=== PATIENT | female | born 1960 | race Native Hawaiian/Other Pacific Islander ===

== ENCOUNTER 2016-10-25 17:58 | Outpatient (CLI) | payer BC ==
[2016-10-25 18:45] LABS: PLATELET COUNT 289 K/uL (152-353)
[2016-10-25 19:05] LABS: POTASSIUM 3.6 mmol/L (3.6-5.2); SODIUM 138 mmol/L (136-145)
== END 2016-10-25 19:27 | disposition home or self-care (01) ==
LOC: LABW 17:58
PROVIDERS: Family Medicine
DX: R55 Syncope and collapse (principal); Z78.0 Asymptomatic menopausal state; Z98.82 Breast implant status; R41.0 Disorientation, unspecified
CPT/HCPCS: 36415; 80053; 81000; 82652; 84439; 84443; 85027

== ENCOUNTER 2018-04-13 14:37 | Outpatient (CLI) | payer BC | END 2018-04-13 19:17 | disposition home or self-care (01) | LOC: RAD 14:37 | DX: R05 Cough (principal) ==

== ENCOUNTER 2018-04-14 10:27 | Outpatient (CLI) | payer BC ==
[2018-04-14 10:50] LABS: PLATELET COUNT 326 K/uL (152-353)
[2018-04-14 11:05] LABS: POTASSIUM 3.5 mmol/L (3.6-5.2)
== END 2018-04-14 19:08 | disposition home or self-care (01) ==
LOC: LABW 10:27
PROVIDERS: Internal Medicine
DX: I10 Essential (primary) hypertension (principal)
CPT/HCPCS: 36415; 80053; 80061; 81000; 84443; 85027

== ENCOUNTER 2018-12-27 15:29 | Outpatient (CLI) | payer BC | END 2018-12-27 19:14 | disposition home or self-care (01) | LOC: LAB 15:29 | DX: R39.89 Other symptoms and signs involving the genitourinary system (principal) | CPT/HCPCS: 81000; 87077; 87086; 87088; 87186 ==

== ENCOUNTER 2019-08-31 08:24 | Outpatient (CLI) | payer BC | END 2019-08-31 19:05 | disposition home or self-care (01) | LOC: US 08:24 | DX: M79.606 Pain in leg, unspecified (principal) ==

== ENCOUNTER 2019-12-12 14:05 | Outpatient (CLI) | payer BC | END 2019-12-12 19:30 | disposition home or self-care (01) | LOC: LAB 14:05 | DX: N39.0 Urinary tract infection, site not specified (principal) | CPT/HCPCS: 87077; 87086; 87088; 87186 ==

== ENCOUNTER 2021-09-04 08:06 | Outpatient (CLI) | payer BC ==
[2021-09-04 08:19] LABS: PLATELET COUNT 233 K/uL (152-353)
[2021-09-04 08:40] LABS: POTASSIUM 3.9 mmol/L (3.6-5.2)
== END 2021-09-04 20:12 | disposition home or self-care (01) ==
LOC: LABW 08:06
PROVIDERS: ATTEND Internal Medicine
DX: I10 Essential (primary) hypertension (principal)
CPT/HCPCS: 36415; 80053; 80061; 84439; 84443; 85027

== ENCOUNTER 2022-05-13 12:05 | Emergency (ER) | payer BC ==
[~2022-05-13] VITALS: Ht 165.1 cm; Wt 59.0 kg
[2022-05-13 12:48] LABS: PLATELET COUNT 225 K/uL (152-353)
[2022-05-13 12:59] LABS: POTASSIUM 4.6 mmol/L (3.6-5.2)
[2022-05-13 19:10] VITALS: BP 138/64; TEMP 98.2
== END 2022-05-13 19:10 | disposition short-term general hospital (02) ==
LOC: ED 12:05
PROVIDERS: Emergency Medicine
DX: K81.0 Acute cholecystitis (principal)
CPT/HCPCS: 36415; 80053; 81002; 81015; 83690; 85027; 87077; 87086; 87088; 87186; 93005; 96360; 96365; 96375; 99284; J2270; J2405; J2543; J3490; Q9963

== ENCOUNTER 2022-06-05 15:10 | Emergency (ER) | payer BC ==
[~2022-06-05] VITALS: Ht 165.1 cm; Wt 49.9 kg
[2022-06-05 15:19] VITALS: TEMP 97.4
[2022-06-05 16:03] LABS: PLATELET COUNT 766 K/uL (152-353)
[2022-06-05 16:08] LABS: POTASSIUM 3.5 mmol/L (3.6-5.2)
[2022-06-05 16:20] LABS: PARTIAL THROMBOPLASTIN TIME 28.7 SECONDS (24.5-33.6)
[2022-06-05 18:55] VITALS: BP 101/78
== END 2022-06-05 19:11 | disposition still patient (30) ==
LOC: ED 15:10
PROVIDERS: Emergency Medicine
PROC: 0T9B70Z Drainage of Bladder with Drainage Device, Via Natural or Artificial Opening (ICD-10-PCS; principal; 2022-06-05)
DX: K83.2 Perforation of bile duct (principal); K91.89 Other postprocedural complications and disorders of digestive system; N17.8 Other acute kidney failure; R94.4 Abnormal results of kidney function studies; R94.5 Abnormal results of liver function studies; D72.828 Other elevated white blood cell count; Z90.49 Acquired absence of other specified parts of digestive tract; Z11.52 Encounter for screening for COVID-19; Y83.8 Other surgical procedures as the cause of abnormal reaction of the patient, or of later complication, without mention of misadventure at the time of the procedure; Y92.234 Operating room of hospital as the place of occurrence of the external cause
CPT/HCPCS: 36415; 51702; 80053; 81002; 82550; 83605; 83880; 84484; 85007; 85027; 85610; 85730; 87040; 87635; 93005; 96360; 96361; 96365; 99284; J2543; U0003

== ENCOUNTER 2022-08-25 15:23 | Outpatient (CLI) | payer BC ==
[2022-08-25 15:43] LABS: PLATELET COUNT 407 K/uL (152-353)
[2022-08-25 16:00] LABS: POTASSIUM 3.5 mmol/L (3.6-5.2)
== END 2022-08-25 19:16 | disposition home or self-care (01) ==
LOC: LAB 15:23
PROVIDERS: ATTEND Internal Medicine
DX: E11.59 Type 2 diabetes mellitus with other circulatory complications (principal); E46 Unspecified protein-calorie malnutrition; G31.83 Neurocognitive disorder with Lewy bodies
CPT/HCPCS: 80053; 83036; 84134; 84439; 84443; 85027

== ENCOUNTER 2022-09-01 08:59 | Outpatient (CLI) | payer BC | END 2022-09-01 23:57 | disposition home or self-care (01) | LOC: LAB 08:59 | PROVIDERS: ATTEND Internal Medicine | DX: R79.89 Other specified abnormal findings of blood chemistry (principal); K75.0 Abscess of liver | CPT/HCPCS: 80076 ==

== ENCOUNTER 2022-09-06 14:21 | Outpatient (CLI) | payer BC | END 2022-09-06 20:31 | disposition home or self-care (01) | LOC: LAB 14:21 | PROVIDERS: ATTEND Internal Medicine | DX: R74.8 Abnormal levels of other serum enzymes (principal) | CPT/HCPCS: 80076 ==

== ENCOUNTER 2022-09-15 18:35 | Emergency (ER) | payer BC ==
[~2022-09-15] VITALS: Ht 165.1 cm; Wt 52.2 kg
[2022-09-15 19:48] LABS: PLATELET COUNT 284 K/uL (152-353)
[2022-09-15 19:58] LABS: POTASSIUM 3.8 mmol/L (3.6-5.2)
[2022-09-15 22:05] VITALS: BP 110/66; TEMP 98.6
== END 2022-09-15 22:10 | disposition home or self-care (01) ==
LOC: ED 18:35
PROVIDERS: Emergency Medicine Emergency Medical Services
DX: K94.29 Other complications of gastrostomy (principal); L03.818 Cellulitis of other sites; Y83.3 Surgical operation with formation of external stoma as the cause of abnormal reaction of the patient, or of later complication, without mention of misadventure at the time of the procedure; Y92.89 Other specified places as the place of occurrence of the external cause
CPT/HCPCS: 36415; 80053; 81002; 83605; 85027; 87040; 96360; 96365; 99284; Q9963

== ENCOUNTER 2022-09-30 12:52 | Outpatient (CLI) | payer BC | END 2022-09-30 19:04 | disposition home or self-care (01) | LOC: LAB 12:52 | PROVIDERS: ATTEND Internal Medicine | DX: R79.89 Other specified abnormal findings of blood chemistry (principal) | CPT/HCPCS: 80076 ==

== ENCOUNTER 2023-02-04 12:35 | Outpatient (CLI) | payer BC ==
[2023-02-04 12:59] LABS: PLATELET COUNT 293 K/uL (152-353)
[2023-02-04 13:40] LABS: POTASSIUM 3.1 mmol/L (3.6-5.2)
== END 2023-02-04 19:17 | disposition home or self-care (01) ==
LOC: LABW 12:35
PROVIDERS: ATTEND Internal Medicine
DX: R56.9 Unspecified convulsions (principal)
CPT/HCPCS: 36415; 80053; 82542; 85027

== ENCOUNTER 2023-03-08 14:38 | Outpatient (CLI) | payer BC ==
[2023-03-08 15:13] LABS: PLATELET COUNT 274 K/uL (152-353)
[2023-03-08 15:35] LABS: POTASSIUM 3.5 mmol/L (3.6-5.2)
== END 2023-03-08 19:08 | disposition home or self-care (01) ==
LOC: RAD 14:38
PROVIDERS: ATTEND Internal Medicine
DX: R50.9 Fever, unspecified (principal)
CPT/HCPCS: 36415; 80053; 84439; 84443; 85027; 87040

== ENCOUNTER 2023-03-16 14:53 | Outpatient (CLI) | payer BC ==
[~2023-03-16] VITALS: Ht 170.2 cm; Wt 63.5 kg
[2023-03-16 15:25] VITALS: BP 103/50; TEMP 98.8
== END 2023-03-16 18:49 | disposition home or self-care (01) ==
LOC: INF 14:53
PROVIDERS: ATTEND Internal Medicine
DX: N39.0 Urinary tract infection, site not specified (principal)
CPT/HCPCS: 96365; J1580

== ENCOUNTER 2023-03-18 11:16 | Outpatient (CLI) | payer BC ==
[~2023-03-18] VITALS: Ht 165.1 cm; Wt 23.6 kg
[2023-03-18 15:01] VITALS: BP 110/52; TEMP 98.4
== END 2023-03-18 19:01 | disposition home or self-care (01) ==
LOC: INF 11:16
PROVIDERS: ATTEND Internal Medicine
DX: N39.0 Urinary tract infection, site not specified (principal)
CPT/HCPCS: 96365; J1580

== ENCOUNTER 2023-03-19 15:09 | Outpatient (CLI) | payer BC ==
[~2023-03-19] VITALS: Ht 165.1 cm; Wt 52.1 kg
== END 2023-03-19 19:29 | disposition home or self-care (01) ==
LOC: INF 15:09
PROVIDERS: ATTEND Internal Medicine
DX: N39.0 Urinary tract infection, site not specified (principal)
CPT/HCPCS: 96365; J1580

== ENCOUNTER 2023-03-20 15:12 | Outpatient (CLI) | payer BC ==
[~2023-03-20] VITALS: Ht 165.1 cm; Wt 52.0 kg
== END 2023-03-20 18:54 ==
LOC: INF 15:12
PROVIDERS: ATTEND Internal Medicine
DX: N39.0 Urinary tract infection, site not specified (principal)
CPT/HCPCS: 96365; J1580

== ENCOUNTER 2023-03-21 14:40 | Outpatient (CLI) | payer BC ==
[~2023-03-21] VITALS: Ht 165.1 cm; Wt 23.6 kg
[2023-03-21 14:48] VITALS: BP 107/56; TEMP 98.2
== END 2023-03-21 19:27 | disposition home or self-care (01) ==
LOC: INF 14:40
PROVIDERS: ATTEND Internal Medicine
DX: N39.0 Urinary tract infection, site not specified (principal)
CPT/HCPCS: 96365; J1580

== ENCOUNTER 2023-03-22 14:33 | Outpatient (CLI) | payer BC ==
[~2023-03-22] VITALS: Ht 165.1 cm; Wt 23.6 kg
[2023-03-22 15:11] VITALS: BP 102/55; TEMP 98.9
== END 2023-03-22 18:59 | disposition home or self-care (01) ==
LOC: INF 14:33
PROVIDERS: ATTEND Internal Medicine
DX: N39.0 Urinary tract infection, site not specified (principal)
CPT/HCPCS: 96365; J1580

== ENCOUNTER 2023-06-14 13:15 | Outpatient (CLI) | payer BC | END 2023-06-14 19:05 | disposition home or self-care (01) | LOC: LABW 13:15 | PROVIDERS: ATTEND Internal Medicine | DX: R56.9 Unspecified convulsions (principal) | CPT/HCPCS: 36415; 82542 ==

== ENCOUNTER 2023-06-22 10:32 | Emergency (ER) | payer BC ==
[~2023-06-22] VITALS: Ht 165.1 cm; Wt 63.5 kg
[2023-06-22 10:50] VITALS: TEMP 98.5
[2023-06-22 11:46] LABS: PLATELET COUNT 271 K/uL (152-353)
[2023-06-22 11:57] LABS: POTASSIUM 3.3 mmol/L (3.6-5.2)
[2023-06-22 12:42] VITALS: BP 102/51
== END 2023-06-22 12:47 | disposition home or self-care (01) ==
LOC: ED 10:32
PROVIDERS: Family Medicine
DX: N39.0 Urinary tract infection, site not specified (principal); R41.0 Disorientation, unspecified; F03.90 Unspecified dementia, unspecified severity, without behavioral disturbance, psychotic disturbance, mood disturbance, and anxiety; R53.81 Other malaise
CPT/HCPCS: 80053; 81000; 85027; 87040; 87077; 87086; 87088; 87186; 99283

== ENCOUNTER 2023-07-26 07:47 | Inpatient (IN) | payer BC ==
[~2023-07-26] VITALS: Ht 167.6 cm; Wt 77.4 kg
[2023-07-26] VITALS (9 sets, daily range): BP systolic 101–146; BP diastolic 34–54; TEMP 99.9–103.5; Ht 167.6 cm; Wt 77.4 kg
[2023-07-26 08:38] LABS: PLATELET COUNT 236 K/uL (152-353)
[2023-07-26 08:44] LABS: POTASSIUM 3.4 mmol/L (3.6-5.2)
[2023-07-26 08:48] LABS: PARTIAL THROMBOPLASTIN TIME 32.1 SECONDS (23.9-36.7)
[2023-07-26] MEDS ORDERED: TYLENOL PO (13:18)
[2023-07-26] MEDS ORDERED: LANTUS100 UNIT/M SC (13:19)
[2023-07-26] MEDS ORDERED: INSULIN LI100 UNIT/1 SC (13:20)
[2023-07-26] MEDS ORDERED: LOSARTAN/HCTZ PO (13:22)
[2023-07-26] MEDS ORDERED: FURO40TA93 PO (13:23)
[2023-07-26] MEDS ORDERED: LEVE250T PO ×2 (13:23→13:24)
[2023-07-27] VITALS (8 sets, daily range): BP systolic 98–116; BP diastolic 38–48; TEMP 98.1–102
[2023-07-27 05:26] LABS: PLATELET COUNT 179 K/uL (152-353)
[2023-07-27 05:34] LABS: POTASSIUM 3.8 mmol/L (3.6-5.2)
[2023-07-28 04:00] VITALS: BP 114/51; TEMP 99.5
[2023-07-28 05:01] LABS: PLATELET COUNT 175 K/uL (152-353)
[2023-07-28 05:13] LABS: POTASSIUM 3.2 mmol/L (3.6-5.2)
[2023-07-28 07:51] VITALS: BP 113/51; TEMP 98
[2023-07-28 11:54] VITALS: BP 128/65; TEMP 98.7
[2023-07-28 15:55] VITALS: BP 170/45; TEMP 101.8
[2023-07-28 19:41] VITALS: BP 112/47; TEMP 99
[2023-07-28 21:00] VITALS: BP 97/37; TEMP 99
[2023-07-29] VITALS: BP 97/37; TEMP 99
[2023-07-29 04:00] VITALS: BP 140/61; TEMP 99.9
[2023-07-29 08:00] VITALS: BP 122/51; TEMP 99.5
[2023-07-29 08:24] LABS: PLATELET COUNT 232 K/uL (152-353)
[2023-07-29 08:40] LABS: POTASSIUM 3.6 mmol/L (3.6-5.2)
== END 2023-07-29 18:20 | disposition home or self-care (01) | DRG 690 ==
LOC: ED 07:47 → MED/SURG 09:08
PROVIDERS: Internal Medicine Endocrinology, Diabetes & Metabolism; ADMIT Family Medicine; ATTEND Internal Medicine
DX: N39.0 Urinary tract infection, site not specified (principal); R78.81 Bacteremia; G40.802 Other epilepsy, not intractable, without status epilepticus; B96.29 Other Escherichia coli [E. coli] as the cause of diseases classified elsewhere; Z93.1 Gastrostomy status; R50.9 Fever, unspecified; E11.9 Type 2 diabetes mellitus without complications; I50.9 Heart failure, unspecified; R00.0 Tachycardia, unspecified; Z79.4 Long term (current) use of insulin; Z79.01 Long term (current) use of anticoagulants
CPT/HCPCS: 36415; 80048; 80053; 81000; 82550; 83605; 83735; 84100; 84484; 85027; 85610; 85730; 87040; 87077; 87086; 87088; 87186; 87205; 93005; 96361; 96365; 96367; 96375; 99284; J0132; J0696; J1650; J2060; J2185; J2543; J3490